=== PATIENT | female | born 1965 | race Caucasian/White ===

== ENCOUNTER 2019-06-21 14:31 | Observation (INO) | payer BC ==
[2019-06-21] MEDS ORDERED: Sodium Chloride 0.9% 1000 ML 1,000 ML IV STA (16:13)
[2019-06-21] MEDS ORDERED: Zofran 4 MG/2 ML VIAL IV PRN (16:13)
[2019-06-21 17:58] LABS: Absolute Neutrophil Ct (ANC) 4.96 (1.4-6.9); BASOPHIL % 0.4 % (0.0-0.4); Basophil (Absolute #) 0.03 (0-0.4); Eosinophil % 1.5 % (0.00-5.0); Eosinophil (Absolute #) 0.11 (0-0.5); Hematocrit 43.6 % (35-47); Hemoglobin 14.1 gm/dl (12.0-16.0); Lymphocyte (Absolute #) 1.49 (1.0-4.6); Lymphocytes % 20.7 % (24.0-44.0); Mean Corpuscular Hemoglobin 28.8 pg (26-32); Mean Corpuscular Hgb Concent. 32.3 g/dl (32-36); Mean Platelet Volume 12.2 fl (7.5-11.0); Monocyte (Absolute #) 0.62 (0.0-1.3); Monocytes % 8.6 % (0.0-12.0); Neutrophil % 68.8 % (36.0-66.0); Platelet Count 173 K/mm3 (150-450); Red Cell Distribution Width 13.2 % (11.5-14.0); White Blood Count 7.2 K/mm3 (4.0-10.5)
[2019-06-21 18:10] LABS: ALBUMIN 4.3 g/dL (3.5-5.0); ALKALINE PHOSPHATASE 86 U/L (38-126); BLOOD UREA NITROGEN 9 mg/dL (7-17); CHLORIDE 104 mmol/L (98-107); Calcium 9.3 mg/dL (8.4-10.2); Carbon Dioxide 27 mmol/L (22-30); Creatinine 1 0.86 mg/dL (0.52-1.04); Glucose 96 mg/dL (74-106); Potassium 3.5 mmol/L (3.5-5.1); SGOT/AST 42 U/L (14-36); SGPT/ALT 27 U/L (0-35); SODIUM 139 mmol/L (137-145); Total Protein 7.4 g/dL (6.3-8.2)
[2019-06-21 18:27] LABS: Appearance CLEAR (CLEAR); Bilirubin NEGATIVE (NEGATIVE); Blood SMALL Ery/ul (0-5); Epithelial Cells RARE /HPF (FEW); Glucose NEGATIVE (NEGATIVE); Ketones NEGATIVE (NEGATIVE); Leukocyte Esterase SMALL (NEGATIVE); Mucus SLIGHT /HPF (NEGATIVE); Nitrite NEGATIVE (NEGATIVE); Protein,Urine Dip NEGATIVE (Negative); Specific Gravity 1.016 (1.005-1.025); Urobilinogen NEGATIVE mg/dL (0-1)
[2019-06-21 18:30] LABS: Bacteria NONE SEEN /HPF (NEGATIVE)
[2019-06-21] MEDS: Sodium Chloride 0.9% 1000 ML 1,000 ML IV SCH (19:05)
[2019-06-21] MEDS: Vibramycin 100 MG PO SCH (20:03)
[2019-06-21] MEDS ORDERED: Ativan 1 MG PO PRN (20:11)
[2019-06-21] MEDS: Pepcid 20 MG PO SCH (23:18)
[2019-06-21] MEDS: COREG 12.5 MG PO SCH (23:18)
[2019-06-21] MEDS: Pepto-Bismol PO SCH (23:18)
[2019-06-21] MEDS: Flagyl 500 MG PO SCH (23:22)
[2019-06-22] MEDS: Sodium Chloride 0.9% 1000 ML 1,000 ML IV SCH (05:12)
[2019-06-22] MEDS: Pepto-Bismol PO SCH (06:33)
[2019-06-22] MEDS ORDERED: Ativan 1 MG PO PRN (06:48)
[2019-06-22] MEDS: COREG 12.5 MG PO SCH (08:46)
[2019-06-22] MEDS: Flagyl 500 MG PO SCH (08:47)
[2019-06-22] MEDS: Pepcid 20 MG PO SCH (08:47)
[2019-06-22] MEDS: Vibramycin 100 MG PO SCH (08:48)
[2019-06-22] MEDS ORDERED: Zestril 20 MG PO SCH (10:00)
[2019-06-22] MEDS ORDERED: Protonix 40MG Tablet PO SCH (10:00)
[2019-06-22] MEDS ORDERED: DESLORATADINE 5 MG PO SCH (10:00)
[2019-06-22] MEDS ORDERED: CLARITIN 10 MG PO SCH (10:00)
[2019-06-22] MEDS ORDERED: Pepto-Bismol PO SCH (12:00)
[2019-06-22 12:22] VITALS: BP 193/88; PULSE 72; O2SAT 99
== END 2019-06-22 15:00 | disposition home or self-care (01) ==
LOC: MED SURG 15:40
PROVIDERS: ADMIT General Practice; ATTEND General Practice
DX: E86.0 Dehydration (principal); R19.7 Diarrhea, unspecified; Z79.899 Other long term (current) drug therapy
CPT/HCPCS: 36415; 80053; 81001; 85025; 87086; G0378; A9270-GY